=== PATIENT | female | born 1990 | race African-American/Black ===

== ENCOUNTER 2016-08-26 03:32 | Emergency (ER) | payer SELFPAY ==
[~2016-08-26] VITALS: Ht 160 cm; Wt 70.0 kg
[~2016-08-26 03:32] MED LIST: OXYC1SOL5 PO; PRENCAP6 PO
[2016-08-26 03:35] VITALS: BP 96/59; PULSE 85; RESP 18; TEMP 98.6; O2SAT 99
[2016-08-26 04:35] VITALS: BP 107/55; PULSE 68; RESP 16; O2SAT 100
[2016-08-26] MEDS ORDERED: SODIUM CHLOR 0.9% 1000 ML INJ 1,000 ML IV SCH (04:52)
[2016-08-26] MEDS ORDERED: ONDANSETRON HCL 4 MG/2 ML VIAL IVP ONE (05:00)
[2016-08-26] MEDS ORDERED: SODIUM CHLORIDE 0.9% FLUSH 10 ML FLUSH IV FLUSH PRN (05:00)
--- NOTE | 2016-08-26 05:09 | PD ---
HPI Chief Complaint: Abdominal Pain Time Seen by Provider: 04:51 Travel History International Travel<30 days: No Contact w/Intl Traveler<30days: No Traveled to known affect area: No History of Present Illness HPI The patient is a 26 year old female who presents to the [facility] emergency department with a history of sharp abdominal pain in the periumbilical and suprapubic area that began at 3 AM. The patient reports that she awoke with the pain. She reports that the pain has been constant since the onset. She reports that she's had vomiting 1 associated with this. She denies having any diarrhea. Her last bowel movement was earlier today. She denies having any blood in her stool or black or tarry stools. She reports that her last menstrual cycle was 4 weeks ago. She denies using any type of contraceptive. She is unsure whether she could be . The patient denies having any dysuria, hematuria, urinary urgency, or frequency. On review of systems, the patient denies any recent fevers, cough, congestion, neck pain, chest pain, shortness of breath, or neurologic symptoms. [facility] Past Medical History Narrative Medical The patient's past medical history is reportedly none. Medical History: Denies Significant Hx Immunizations Current: Yes Tetanus Vaccination: < 5 Years Influenza Vaccination: Yes ?: Not : 2 Para: 2 Miscarriage: 0 : 0 Past Surgical History Narrative Surgical The patient's past surgical history is reportedly none. Surgical History: No Previous Surgery Social History Alcohol Use: No Tobacco Use: No Substance Use: No Allergies-Medications (Allergen,Severity, Reaction): Coded Allergies: No Known Allergies (Verified , 05/28/15) Reported Meds & Prescriptions Reported Meds & Active Scripts Active Zofran Odt (Ondansetron Odt) 4 Mg Tab 4 Mg SL Q6HR PRN Naproxen EC (Naproxen) 500 Mg Tabdr 500 Mg PO BID PRN Review of Systems Except as stated in HPI: all other systems reviewed are Neg General / Constitutional: No: Fever Eyes: No: Visual changes HENT: No: Headaches Cardiovascular: No: Chest Pain or Discomfort Respiratory: No: Shortness of Breath Gastrointestinal: Positive: Nausea, Vomiting, Abdominal Pain, No: Diarrhea, Hematemesis, Hematochezia, Constipation, Changes in Bowel Habits, Indigestion, Loss of Appetite Genitourinary: No: Urgency, Frequency, Dysuria Musculoskeletal: No: Pain Skin: No Rash Neurologic: No: Weakness Psychiatric: No: Depression Endocrine: No: Polydipsia Hematologic/Lymphatic: No: Easy Bruising Physical Exam Narrative General: The patient is a well-developed well-nourished female in no acute distress. Head and Neck exam: Head is normocephalic atraumatic. Eyes: EOMI, pupils are equal round and reactive to light. Nose: Midline septum with pink mucous membranes Mouth: Dentition unremarkable. Moist mucus membranes. Posterior oropharynx is not erythematous. No tonsillar hypertrophy. Uvula midline. Airway patent. Neck: No palpable lymphadenopathy. No nuchal rigidity. No thyromegaly. Cardiovascular: Regular rate and rhythm without murmurs, gallops, or rubs. Lungs: Clear to auscultation bilaterally. No wheezes, rhonchi, or rales. Abdomen: Soft, with reported discomfort on palpation of the periumbilical area, no other tenderness on palpation of the other quadrants of the abdomen. No guarding, rebound, or rigidity. Normal bowel sounds are audible. No tenderness on palpation of McBurney's point. Negative [place] sign. Extremities: No clubbing, cyanosis, or edema. No calf tenderness on palpation. Back: No spinous process tenderness to palpation. No costovertebral angle tenderness to palpation. Neurologic Exam: Grossly nonfocal. Skin Exam: No rash noted. Intact skin that is warm and dry. Data Data Last Documented VS Vital Signs Date Time Temp Pulse Resp B/P Pulse Ox O2 Delivery O2 Flow Rate FiO2 08/26/16 04:35 68 16 107/55 100 Room Air 08/26/16 03:35 98.6 Orders Complete Blood Count With Diff (08/26/16 04:52) Comprehensive Metabolic Panel (08/26/16 04:52) Lipase (08/26/16 04:52) Urinalysis - C+S If Indicated (08/26/16 04:52) Iv Access Insert/Monitor (08/26/16 04:52) Ecg Monitoring (08/26/16 04:52) Oximetry (08/26/16 04:52) Ondansetron Inj (Zofran Inj) (08/26/16 05:00) Sodium Chlor 0.9% 1000 Ml Inj (Ns 1000 M (08/26/16 04:52) Sodium Chloride 0.9% Flush (Ns Flush) (08/26/16 05:00) Ed Urine Pregnancytest Poc (08/26/16 04:52) Ketorolac Inj (Toradol Inj) (08/26/16 05:15) Labs Laboratory Tests Test 08/26/16 08/26/16 05:15 05:40 White Blood Count 9.8 TH/MM3 Red Blood Count 4.66 MIL/MM3 Hemoglobin 12.7 GM/DL Hematocrit 38.1 % Mean Corpuscular Volume 81.7 FL Mean Corpuscular Hemoglobin 27.3 PG Mean Corpuscular Hemoglobin 33.4 % Concent Red Cell Distribution Width 15.2 % Platelet Count 168 TH/MM3 Mean Platelet Volume 10.3 FL Neutrophils (%) (Auto) 68.4 % Lymphocytes (%) (Auto) 21.1 % Monocytes (%) (Auto) 6.7 % Eosinophils (%) (Auto) 2.8 % Basophils (%) (Auto) 1.0 % Neutrophils # (Auto) 6.7 TH/MM3 Lymphocytes # (Auto) 2.1 TH/MM3 Monocytes # (Auto) 0.7 TH/MM3 Eosinophils # (Auto) 0.3 TH/MM3 Basophils # (Auto) 0.1 TH/MM3 CBC Comment DIFF FINAL Differential Comment Sodium Level 141 MEQ/L Potassium Level 3.8 MEQ/L Chloride Level 107 MEQ/L Carbon Dioxide Level 27.3 MEQ/L Anion Gap 7 MEQ/L Blood Urea Nitrogen 11 MG/DL Creatinine 0.82 MG/DL Estimat Glomerular Filtration 103 ML/MIN Rate Random Glucose 90 MG/DL Calcium Level 8.7 MG/DL Total Bilirubin 0.2 MG/DL Aspartate Amino Transf 13 U/L (AST/SGOT) Alanine Aminotransferase 18 U/L (ALT/SGPT) Alkaline Phosphatase 71 U/L Total Protein 7.1 GM/DL Albumin 3.6 GM/DL Lipase 125 U/L Urine Color YELLOW Urine Turbidity CLEAR Urine pH 5.0 Urine Specific [place] 1.015 Urine Protein NEG mg/dL Urine Glucose (UA) NEG mg/dL Urine Ketones NEG mg/dL Urine Occult Blood LARGE Urine Nitrite NEG Urine Bilirubin NEG Urine Urobilinogen LESS THAN 2.0 MG/DL Urine Leukocyte Esterase SMALL Urine RBC 9 /hpf Urine WBC 3 /hpf Urine Squamous Epithelial 1 /hpf Cells Urine Mucus FEW /lpf Microscopic Urinalysis Comment CULT NOT INDICATED MDM Medical Decision Making Medical Screen Exam Complete: Yes Emergency Medical Condition: Yes Medical Record Reviewed: Yes Differential Diagnosis Trapped gas, versus dysmenorrhea, versus ectopic , versus threatened miscarriage, versus constipation, versus urinary tract infection Narrative Course During the course of the patients emergency department visit, the patients history, examination, and differential diagnosis were reviewed with the patient. The patient had IV access obtained and blood work sent for analysis. The patient was placed on a cloth presser with oximetry and blood pressure monitoring. A bedside test was done and was negative. The patient was initially provided normal saline 1 L IV fluid bolus. The patient was given Toradol for pain, Zofran for nausea. The patients laboratory studies were reviewed and remarkable for a CBC that is within normal limits, CMP is unremarkable, lipase 125, urinalysis shows large blood, 9 RBCs, however the patient while being observed in the emergency department began her menstrual cycle. I suspect of the patient's symptoms are related to dysmenorrhea. The patient will be discharged home with a prescription for an anti-inflammatory pain medication and Zofran. The patient is resting comfortably and feels better, is alert and in no distress. The patients results and examination findings were discussed with the patient. The repeat examination is unremarkable and benign. The history, exam, diagnostic testing, and current condition do not suggest any significant pathology to warrant further testing, continued ED treatment, admission, or surgical evaluation at this point. The vital signs have been stable. The patient does not have uncontrollable pain, intractable vomiting, or other significant symptoms. The patient's condition is stable and appropriate for discharge. The patient will pursue further outpatient evaluation with a primary care physician or other designated or consulting physician as indicated in the discharge instructions. The patient expressed understanding and was agreeable with this plan. Diagnosis Primary Impression: Dysmenorrhea Additional Impression: Vomiting Qualified Code: R11.2 - Non-intractable vomiting with nausea, unspecified vomiting type Referrals: Quality Improvement Manager 1 week Patient Instructions: Acute Nausea and Vomiting (ED), Dysmenorrhea (ED), General Instructions Med/Other Pt SpecificInfo: Prescription(s) given Scripts Ondansetron Odt (Zofran Odt)4 Mg Tab4 Mg SL Q6HR PRN (Nausea/Vomiting) #7 TAB Ref 0 Prov:Belinda Cruz MD 08/26/[address] (Naproxen EC)500 Mg [id number] Mg PO BID PRN (PAIN GREATER THAN 5) # 10 TAB Ref 0 Prov:Belinda Cruz MD 08/26/16 Disposition: 01 DISCHARGE HOME Condition: Belinda Elmore MD Aug 26, 2016 05:09 Condition: Belinda Elmore MD Aug 26, 2016 05:09
[2016-08-26] MEDS ORDERED: KETOROLAC TROMETHAMINE 30 MG/ML (IVP) VIAL IV PUSH ONE (05:15)
[2016-08-26 05:36] LABS: AUTOMATED NEUTROPHIL # 6.7 TH/MM3 (1.8-7.7); BASOPHIL # 0.1 TH/MM3 (0-0.2); EOSINOPHIL # 0.3 TH/MM3 (0-0.4); EOSINOPHIL % 2.8 % (0.0-4.0); HEMATOCRIT 38.1 % (35.0-46.0); HEMO FLAGS DIFF FINAL; LYMPH % 21.1 % (9.0-44.0); LYMPHOCYTE # 2.1 TH/MM3 (1.0-4.8); MEAN CELL VOLUME 81.7 FL (80.0-100.0); MEAN CORPUSCULAR HEMOGLOBIN 27.3 PG (27.0-34.0); MEAN CORPUSCULAR HGB CONC 33.4 % (32.0-36.0); MONO % 6.7 % (0.0-8.0); NEUT % 68.4 % (16.0-70.0); PLATELET COUNT 168 TH/MM3 (150-450); RED BLOOD COUNT 4.66 MIL/MM3 (4.00-5.30); RED CELL DISTRIBUTION WIDTH 15.2 % (11.6-17.2); WHITE BLOOD COUNT 9.8 TH/MM3 (4.0-11.0)
[2016-08-26 06:01] LABS: ALKALINE PHOSPHATASE 71 U/L (45-117); TOTAL BILIRUBIN ADULT 0.2 MG/DL (0.2-1.0)
[2016-08-26 06:02] LABS: ALT (GPT) 18 U/L (10-53); ANION GAP 7 MEQ/L (5-15); AST (GOT) 13 U/L (15-37); BICARBONATE 27.3 MEQ/L (21.0-32.0); BLOOD UREA NITROGEN 11 MG/DL (7-18); CHLORIDE 107 MEQ/L (98-107); GLOMERULAR FILTRATION RATE 103 ML/MIN (>89); POTASSIUM 3.8 MEQ/L (3.5-5.1); SODIUM (NA) 141 MEQ/L (136-145)
[2016-08-26 06:04] LABS: BLOOD, URINE LARGE (NEG); COMMENT (UR) CULT NOT INDICATED; CULTURE IF INDICATED CULT NOT INDICATED; GLUCOSE,URINE NEG (NEG); KETONE, URINE NEG (NEG); MUCUS URINE FEW /lpf (OCC); NITRITE,URINE NEG (NEG); SQUAMOUS EPITHELIAL CELL URINE 1 /hpf (0-5); URINE COLOR YELLOW (YELLW/STRAW)
[2016-08-26] MEDS ORDERED: ZOFR4TAB3 SL (06:55)
[2016-08-26] MEDS ORDERED: NAPR1TAB34 PO (06:55)
--- NOTE | 2016-08-27 16:26 | RADRPT ---
EXAM DATE/TIME: 08/26/2016 07:08 [place] COMPARISON: No previous studies available for comparison. INDICATIONS : Abdominal pain and vomiting. MEDICAL HISTORY : None. SURGICAL HISTORY : None. ENCOUNTER: Initial ACUITY: 1 day PAIN SCORE: 8/10 LOCATION: Right lower quadrant FINDINGS: Supine and upright views of the abdomen were performed. The abdominal bowel gas pattern is normal. There is stool throughout the colon. No air fluid levels are seen. No abnormal masses, calcification s, or organomegaly is seen. The visualized lower lungs are clear. No evidence of free intraperitone al gas. The osseous structures are unremarkable. CONCLUSION: Normal examination for a patient of this age. Sudhir Fowler MD on August 26, 2016 at 7:38 Board Certified Radiologist. This report was verified electronically.
== END 2016-08-26 07:34 | disposition home or self-care (01) ==
LOC: NEPC 03:32
DX: N94.6 Dysmenorrhea, unspecified (principal); R11.2 Nausea with vomiting, unspecified
CPT/HCPCS: 74020; 80053; 81001; 83690; 85025; 96361; 96374; 96375; 99284; J1885; J2405; J7030

== ENCOUNTER 2017-06-05 08:20 | Emergency (ER) | payer MEDICAID, OTHER ==
[~2017-06-05] VITALS: Ht 152.4 cm; Wt 56.5 kg
[~2017-06-05 08:20] MED LIST changes: +NAPR1TAB34 PO; -OXYC1SOL5 PO; -PRENCAP6 PO; +ZOFR4TAB3 SL
[2017-06-05 08:26] VITALS: PULSE 92; RESP 14; TEMP 97.8; O2SAT 99
[2017-06-05] MEDS ORDERED: SODIUM CHLOR 0.9% 1000 ML INJ 1,000 ML IV ONE (10:07)
--- NOTE | 2017-06-05 10:12 | PD ---
HPI Chief Complaint: Sanitation Supervisor Problem/Complaint Time Seen by Provider: 09:56 Travel History International Travel<30 days: No Contact w/Intl Traveler<30days: No Traveled to known affect area: No History of Present Illness HPI The patient is a 27-year-old [place] female who presents to the emergency department for bleeding in . The patient is Ab1 whose last menstrual cycle was on March 04, 2017. The patient states she went to the bathroom earlier today and had a small amount of bright red blood on the toilet paper, is unsure if this was vaginal or rectal. She does complain of mild lower abdominal pelvic cramping. She is not scheduled to see an long filler cigar roller machine to the beginning of June. She denies any fever, chills, sweats , dysuria, frequency, or urgency. She does complain of mild nausea without any vomiting. Symptoms are mild to moderate, possibly exacerbated by , and there are no current alleviating factors. PFSH Past Medical History Medical History: Denies Significant Hx Immunizations Current: Yes Tetanus Vaccination: < 5 Years ?: LMP: 15 weeks : 3 Para: 2 Miscarriage: 0 : 1 Past Surgical History Surgical History: No Previous Surgery Social History Alcohol Use: No Tobacco Use: No Substance Use: No Allergies-Medications (Allergen,Severity, Reaction): Coded Allergies: No Known Allergies (Verified Adverse Reaction, Unknown, 06/05/17) Reported Meds & Prescriptions Reported Meds & Active Scripts Active Flagyl (Metronidazole) 500 Mg Tab 500 Mg PO BID 7 Days Review of Systems Except as stated in HPI: all other systems reviewed are Neg General / Constitutional: No: Fever Cardiovascular: No: Chest Pain or Discomfort Respiratory: No: Shortness of Breath Gastrointestinal: Positive: Nausea, No: Vomiting, Abdominal Pain Genitourinary: Positive: Pelvic Pain, Vaginal Bleeding, No: Urgency, Frequency , Dysuria, Discharge Physical Exam Narrative GENERAL: Awake, alert, pleasant 27 year-old female who appears her stated age and is in no acute respiratory distress. SKIN: Focused skin assessment warm/dry. HEAD: Atraumatic. Normocephalic. EYES: No injection or drainage. ENT: No nasal bleeding or discharge. Mucous membranes pink and moist. NECK: Trachea midline. No JVD. CARDIOVASCULAR: Regular rate and rhythm. No murmur appreciated. RESPIRATORY: No accessory muscle use. Clear to auscultation. Breath sounds equal bilaterally. GASTROINTESTINAL: Abdomen soft, gravid inferior to the umbilicus. No guarding or rigidity. Pelvic: Exam was performed in the presence of a female nurse. External examination reveals no rashes or lesions. Speculum examination reveals that the cervix is closed, mild erythema over the superior and inferior aspect of the cervical os. Yellow foamy discharge in the vaginal vault. Wet prep and gonorrhea/chlamydia were sent to lab. MUSCULOSKELETAL: No obvious deformities. No clubbing. No cyanosis. No edema. NEUROLOGICAL: Awake and alert. No obvious cranial nerve deficits. Motor grossly within normal limits. Normal speech. PSYCHIATRIC: Appropriate mood and affect; insight and judgment normal. Data Data Last Documented VS Vital Signs Date Time Temp Pulse Resp B/P (MAP) Pulse Ox O2 Delivery O2 Flow Rate FiO2 06/05/17 08:26 97.8 92 14 99 Orders Orders Ed Poc Ultrasound (06/05/17 ) Gc And Chlamydia Pcr (06/05/17 10:07) Wet Prep Profile (06/05/17 10:07) Urinalysis - C+S If Indicated (06/05/17 10:07) Iv Access Insert/Monitor (06/05/17 10:07) Sodium Chlor 0.9% 1000 Ml Inj (Ns 1000 M (06/05/17 10:07) Ondansetron Inj (Zofran Inj) (06/05/17 10:15) Labs Laboratory Tests Test 06/05/17 10:27 06/05/17 10:40 Clue Cells (Wet Prep) NONE SEEN Vaginal Trichomonas (Wet Prep) PRESENT Vaginal Yeast (Wet Prep) NONE SEEN Urine Color YELLOW Urine Turbidity CLEAR Urine pH 7.0 Urine Specific [place] 1.013 Urine Protein NEG mg/dL Urine Glucose (UA) NEG mg/dL Urine Ketones NEG mg/dL Urine Occult Blood NEG Urine Nitrite NEG Urine Bilirubin NEG Urine Urobilinogen LESS THAN 2.0 MG/DL Urine Leukocyte Esterase SMALL Urine RBC 1 /hpf Urine WBC 7 /hpf Urine Squamous Epithelial Cells <1 /hpf Urine Mucus FEW /lpf Urine Trichomonas RARE Microscopic Urinalysis Comment CULT NOT INDICATED MDM Medical Decision Making Medical Screen Exam Complete: Yes Emergency Medical Condition: Yes Medical Record Reviewed: Yes Interpretation(s) Laboratory Tests Test 06/05/17 10:27 06/05/17 10:40 Clue Cells (Wet Prep) NONE SEEN Vaginal Trichomonas (Wet Prep) PRESENT Vaginal Yeast (Wet Prep) NONE SEEN Urine Color YELLOW Urine Turbidity CLEAR Urine pH 7.0 Urine Specific [place] 1.013 Urine Protein NEG mg/dL Urine Glucose (UA) NEG mg/dL Urine Ketones NEG mg/dL Urine Occult Blood NEG Urine Nitrite NEG Urine Bilirubin NEG Urine Urobilinogen LESS THAN 2.0 MG/DL Urine Leukocyte Esterase SMALL Urine RBC 1 /hpf Urine WBC 7 /hpf Urine Squamous Epithelial Cells <1 /hpf Urine Mucus FEW /lpf Urine Trichomonas RARE Microscopic Urinalysis Comment CULT NOT INDICATED Differential Diagnosis Differential diagnosis includes , ectopic , threatened AB, UTI , vaginitis, cervicitis, Trichomonas, bacterial vaginosis. Narrative Course IV was established, and the patient was placed on cardiac telemetry monitoring and continuous pulse oximetry monitoring. I performed an ultrasound at bedside which reveals an IUP with positive heart rate and positive heart tones. A pelvic exam was completed in the presence of a female nurse. UA was sent to lab. Wet prep and gonorrhea/80 were sent to lab. The patient's blood type on December 29, 2015 was O+, therefore, no indication for RhoGAM. UA reveals 7 wbc's. Wet prep is positive for Trichomonas. The patient was treated with Flagyl 5 mg twice a day for one week. She is advised to follow-up with her long filler cigar roller machine. Return if symptoms worsen or progress. Procedures Procedure Narrative A bedside ultrasound was performed with a curvilinear probe which reveals an IUP with positive heart rate and positive movement. The patient was shown the ultrasound as it was performed real-time. The patient tolerated the procedure without difficulty and there was no complications. Diagnosis Primary Impression: Trichomonas infection Additional Impression: Qualified Codes: Z34.90 - Encounter for supervision of normal , unspecified, unspecified trimester Patient Instructions: General Instructions Additional Instructions: Medication as directed. Follow-up with her long filler cigar roller machine. Take a vitamin daily. Return if symptoms worsen or progress. Med/Other Pt SpecificInfo: Prescription(s) given Scripts Metronidazole (Flagyl) 500 Mg Tab 500 MG PO BID for Infection for 7 Days, #14 TAB 0 Refills Prov: Terry Jerry MD 06/05/17 Disposition: DISCHARGE HOME Condition: Stable Terry Jerry MD Jun 05, 2017 10:12
[2017-06-05] MEDS ORDERED: ONDANSETRON HCL 4 MG/2 ML VIAL IVP ONE (10:15)
[2017-06-05] MEDS ORDERED: METR-1 PO (11:13)
[2017-06-05 11:17] LABS: BILIRUBIN, URINE NEG (NEG); BLOOD, URINE NEG (NEG); GLUCOSE,URINE NEG (NEG); KETONE, URINE NEG (NEG); MUCUS URINE FEW /lpf (OCC); NITRITE,URINE NEG (NEG); SQUAMOUS EPITHELIAL CELL URINE <1 /hpf (0-5); TRICHOMONAS, URINE RARE; URINE COLOR YELLOW (YELLW/STRAW); URINE LEUKOCYTE ESTERASE SMALL (NEG)
== END 2017-06-05 12:13 | disposition home or self-care (01) ==
LOC: NEPD 08:20
DX: O98.811 Other maternal infectious and parasitic diseases complicating pregnancy, first trimester (principal); A59.9 Trichomoniasis, unspecified
CPT/HCPCS: 81001; 87210; 87491; 87591; 96361; 96374; 99284; J2405; J7030

== ENCOUNTER 2017-12-02 13:17 | Inpatient (IN) ==
[2017-12-02] MEDS ORDERED: Sodium Chlor 0.9% Inj 500 ML IV.SIG PRN (14:01)
[2017-12-02] MEDS ORDERED: Penicillin G Potassium Inj 5,000,000 UNIT in Sodium Chloride 0.9% Inj 100 ML IV.SIG ONE (14:01)
[2017-12-02] MEDS ORDERED: Naloxone Inj 0.4 MG/ML Vial IV.PUSH PRN ×2 (14:01→19:15)
[2017-12-02] MEDS ORDERED: fentaNYL Citrate Inj 100 MCG/2 ML Ampul IV.PUSH PRN ×2 (14:01)
[2017-12-02] MEDS ORDERED: Oxytocin 30 Units/500ml Premix 30 UNITS/500 ML BAG IV.SIG ONE (14:01)
[2017-12-02] MEDS ORDERED: Sod Chloride 0.9% Inj 1,000 ML IV.CONT PRN (14:01)
--- NOTE | 2017-12-02 14:07 | ED ---
History of Present Illness Service: 27-year-old at 39 weeks gestation presenting to the OB ED with complaints of contractions. Patient states that she began having contractions this morning they have been increasing in frequency. She also endorses some spotting but no significant bleeding. No gush of fluid or decreased movement. She was seen by Samantha Lawson earlier today and culture was 4 cm dilated. She otherwise denies any fever, chills, dysuria, headache, chest pain or shortness of breath. Primary Care Physician: UNKNOWN Review of Systems All other systems reviewed negative except as stated in HPI PMFSH - History History Provided By: Patient - Medical / Surgical Hx Neg / Unobtainable Surgical History: No Previous Surgery - Medical History Medical History: Medical History (Last Updated 12/02/17 @ 14:15 by Darren Quezada MD, R2) HSV (herpes simplex virus) infection - Tobacco History Tobacco Use In Past 30 Days: No - Alcohol History How Often Do You Have a Drink Containing Alcohol: Never - Substance Use History Substance History: Active Abuse - Substance Use Type Marijuana Status: Active Route Used: Inhalation - Immunization History Tetanus Immunization: Unable to Assess Hx Influenza Vaccine This Season: No Medications and Allergies Active Medications: Active Medications Citric Acid/Sodium Citrate (Sodium Citrate/Citric Acid Liq) 30 ml PO HOTEL DINING ROOM CASHIER AISHWARYA Stop: 12/06/17 14:14 Fentanyl Citrate (Fentanyl Inj) 50 mcg IV.PUSH Q1H PRN PRN Reason: Pain Scale 3 - 5 Fentanyl Citrate (Fentanyl Inj) 100 mcg IV.PUSH Q1H PRN PRN Reason: PAIN SCALE 6 TO 10 Lidocaine HCl (Xylocaine 1% Inj) 0.1 ml I-DERMAL PRN PRN PRN Reason: For IV start Stop: 12/05/17 14:00 Lidocaine HCl (Xylocaine 1% Inj) 10 ml INFILTRATN PRN PRN PRN Reason: For episiotomy repair Stop: 12/04/17 14:00 Allergies Allergy/AdvReac Type Severity Reaction Status Date / Time No Known Allergies Unknown Uncoded 06/05/17 08:35 Exam Vital signs: Vital Signs 12/02/17 13:31 12/02/17 13:32 Temperature 98.6 F Pulse Rate 81 Respiratory Rate 20 Blood Pressure 126/72 Narrative: GENERAL: Well-nourished, well-developed patient. SKIN: Warm and dry. HEAD: Normocephalic and atraumatic. EYES: No scleral icterus. No injection or drainage. ENT: No nasal drainage noted. Mucous membranes pink. Airway patent. NECK: Supple, trachea midline. No JVD. CARDIOVASCULAR: Regular rate and rhythm without murmurs, gallops, or rubs. RESPIRATORY: Breath sounds equal bilaterally. No accessory muscle use. ABDOMEN/GI: Abdomen soft, non-tender, bowel sounds present, no rebound, no guarding Gravid to 39 weeks size GENITOURINARY: External Genitalia: intact and normal in appearance Cervix: Midposition Dilatation: 5-6 Effacement: 70 Station: -2 Presentation: vertex Membranes: [intact] Uterine Contractions: Every 2-5 minutes FHT's: Category: 1 Baseline: 130 Reactive: y Variability: Moderate Decels: Absent EXTREMITIES: No cyanosis or edema. BACK: Nontender without obvious deformity. No CVA tenderness. NEUROLOGICAL: Awake and alert. Moves all extremities without difficulty. Normal speech. Assessment and Plan - Plan 27-year-old at 39 weeks gestation present OB ED with contractions. Noted to be 5-6/70/-2. GBS positive -GBS positive, no allergies will treat with penicillin per protocol -Patient requesting epidural -History of HSV, states last outbreak was several years ago. No prophylactic antiviral during this -Category 1 tracing, having contractions every 2-5 minutes -Otherwise routine labor and delivery orders Discharge Plan - Discharge Disposition Patient Disposition: 30 Still Patient - Physicians Team ED Provider: Jace Aguilera Primary Care Provider: UNKNOWN,
[2017-12-02] MEDS ORDERED: Citric Acid/Sodium Citrate Liq 30 ML UDC PO SCH (14:15)
[2017-12-02 14:59] LABS: Baso # (Auto) 0.1 th/mm3 (0.0-0.2); Baso % (Auto) 0.7 % (0.0-2.0); Eos # (Auto) 0.2 th/mm3 (0.0-0.4); Eos % (Auto) 1.6 % (0.0-4.0); Hematocrit 33.3 % (35.0-46.0); Hemoglobin 10.9 gm/dL (11.6-15.3); Lymph % (Auto) 15.7 % (9.0-44.0); Mean Corpuscular HGB Conc 32.8 % (32.0-36.0); Mean Corpuscular Hemoglobin 23.9 pg (27.0-34.0); Mean Corpuscular Volume 72.8 fL (80.0-100.0); Mean Platelet Volume 10.5 fL (7.0-11.0); Mono % (Auto) 7.7 % (0.0-8.0); Neut # (Auto) 9.4 th/mm3 (1.8-7.7); Neut % (Auto) 74.3 % (16.0-70.0); Platelet Count 140 th/mm3 (150-450); Red Blood Count 4.57 mil/mm3 (4.00-5.30); Red Cell Distribution Width 17.6 % (11.6-17.2); White Blood Count 12.6 th/mm3 (4.0-11.0)
[2017-12-02 15:28] LABS: Amphetamine Urine With Conf Neg (Neg); Benzodiazepine Urine With Conf Neg (Neg)
[2017-12-02] MEDS ORDERED: fentaNYL 2MCG-Bupiv 0.125% Epi 150 ML EPIDURAL ONE (15:45)
[2017-12-02] MEDS ORDERED: Diphtheria/Tetanus/Pertussis Vaccine Inj 0.5 ML Syringe IM ONE (16:00)
[2017-12-02] MEDS ORDERED: Measles/Mumps/Rubella Vaccine Inj 0.5 ML Vial SQ ONE (16:00)
[2017-12-02] MEDS ORDERED: fentaNYL 2MCG-Bupiv 0.125% Epi 150 ML EPIDURAL PRN (16:32)
[2017-12-02] MEDS ORDERED: fentaNYL Citrate Inj 100 MCG/2 ML Ampul EPIDURAL ONE (16:32)
[2017-12-02] MEDS ORDERED: Penicillin G Potassium Inj 2,500,000 UNIT in Sodium Chlor 0.9% Inj 100 ML IV.SIG SCH (18:01)
[2017-12-02] MEDS ORDERED: Lidocaine PF 1% Inj 30 ML Vial ONE (19:02)
[2017-12-02] MEDS ORDERED: Ibuprofen 400 MG Tablet PO PRN (19:15)
[2017-12-02] MEDS ORDERED: Witch Hazel 50%/Glyderin 12.5% 40 Pad Jar RECTAL PRN (19:15)
[2017-12-02] MEDS ORDERED: Zolpidem Tartrate 5 MG Tablet PO PRN (19:15)
[2017-12-02] MEDS ORDERED: Bisacodyl 10 MG Supp RECTAL PRN (19:15)
[2017-12-02] MEDS ORDERED: Acetaminophen 325 MG Tablet PO PRN (19:15)
[2017-12-02] MEDS ORDERED: Benzocaine 20% Top Spray 60 ML Can TOPICAL PRN (19:15)
[2017-12-02] MEDS ORDERED: Oxytocin 30 Units/500ml Premix 30 UNITS/500 ML BAG IV.CONT SCH (19:15)
--- NOTE | 2017-12-02 19:18 | P.OBDELI ---
Weeks Gestation: 39 Anesthesia: Epidural Episiotomy: none Vaginal Delivery: Normal Presentation: Occiput anterior Nuchal Cord: None Delayed Cord Clamping (45 sec): Yes Placenta: Spontaneous delivery, Intact Laceration: None Estimated blood loss (mL): 200 : Female Infant Female A Delivery Date: 12/02/17 Delivery Time: 19:05 Weight: 2920 kg score (1 min): 9 score (5 min): 9 Additional Information: Delivered by Neil Cary MD supervised by Dr. Willy MD and Dr. Aron MD. Mother GBS positive, received 1 dose of penicillin.
[2017-12-03] MEDS ORDERED: medroxyPROGESTERone Acetate Inj 150 MG/ML Syringe IM SCH (08:09)
--- NOTE | 2017-12-03 08:09 | P.PNOB ---
Subjective Interval history: Patient is a 27-year-old delivered at 39 weeks. Patient is day 1 after . Patient's pain is well-controlled. Patient reports eating and drinking without any nausea or vomiting. Patient reports minimal bleeding. Patient has passed gas but no bowel movements. Patient is walking without lower extremity pain or shortness of breath. Patient reports desire for contraception. Objective Vital Signs/I&O: Vital Signs 12/02/17 13:31 12/02/17 13:32 12/02/17 15:28 Temperature 98.6 F Pulse Rate 81 Respiratory Rate 20 16 Blood Pressure 126/72 12/02/17 15:29 12/02/17 15:30 12/02/17 16:00 Temperature Pulse Rate 86 82 87 Respiratory Rate Blood Pressure 124/82 119/78 118/75 12/02/17 16:06 12/02/17 16:11 12/02/17 16:26 Temperature Pulse Rate 91 H 83 84 Respiratory Rate Blood Pressure 122/99 H 129/72 117/70 12/02/17 16:30 12/02/17 16:32 12/02/17 16:36 Temperature Pulse Rate 90 Respiratory Rate 16 Blood Pressure 116/71 161/141 H 12/02/17 17:00 12/02/17 17:01 12/02/17 17:31 Temperature Pulse Rate 78 89 Respiratory Rate 18 Blood Pressure 109/68 109/56 L 12/02/17 17:48 12/02/17 18:01 12/02/17 18:31 Temperature Pulse Rate 74 74 Respiratory Rate 18 Blood Pressure 105/80 116/68 12/02/17 18:36 12/02/17 19:11 12/02/17 19:15 Temperature 97.5 F L 97.8 F Pulse Rate 98 H 83 Respiratory Rate 18 12 Blood Pressure 106/91 H 114/58 L 12/02/17 19:19 12/02/17 19:43 12/02/17 19:49 Temperature Pulse Rate 89 71 Respiratory Rate 16 Blood Pressure 123/69 104/70 12/02/17 20:00 12/02/17 20:04 12/02/17 20:15 Temperature Pulse Rate 75 86 Respiratory Rate 14 Blood Pressure 120/75 123/82 12/02/17 20:30 12/02/17 21:06 12/02/17 21:30 Temperature 97.8 F Pulse Rate 89 87 Respiratory Rate 16 18 Blood Pressure 130/96 H 114/81 Intake & Output 12/02/17 12/03/17 12/03/17 18:59 06:59 18:59 Weight 75.189 kg Result Diagrams: 12/02/17 14:32 Objective Remarks: GENERAL: Well-nourished, well-developed patient. CARDIOVASCULAR: Regular rate and rhythm without murmurs, gallops, or rubs. RESPIRATORY: Breath sounds equal bilaterally. No accessory muscle use. ABDOMEN/GI: Abdomen soft, non-tender. Fundus: Firm, non-tender at umbilicus. GENITOURINARY: Light to moderate bleeding. EXTREMITIES: No cyanosis or edema, non-tender, without signs of DVT. Medications and IVs: Active Medications Acetaminophen (Tylenol) 650 mg PO Q4H PRN PRN Reason: PAIN SCALE 1 TO 2 Al Hydroxide/Mg Hydroxide (Milk Of Magnesia Liq) 30 ml PO Q12H PRN PRN Reason: Mild Constipation Benzocaine (Americaine 20% Top [place]) 1 spray TOPICAL Q4H PRN PRN Reason: For Perineum Discomfort Last Admin: 12/02/17 21:15 Dose: 1 spray Bisacodyl (Dulcolax Supp) 10 mg RECTAL DAILY PRN PRN Reason: SEVERE CONSITIPATION Ibuprofen (Motrin) 800 mg PO Q8H PRN PRN Reason: For cramping Last Admin: 12/02/17 22:45 Dose: 800 mg Lactulose (Lactulose Liq) 30 ml PO DAILY PRN PRN Reason: SEVERE CONSITIPATION Naloxone HCl (Narcan Inj) 0.1 mg IV.PUSH Q2M PRN PRN Reason: for opiate reversal Ondansetron HCl (Zofran Odt) 4 mg PO Q6H PRN PRN Reason: NAUSEA OR VOMITING Oxycodone/Acetaminophen (Percocet 5/325 Mg) 1 tab PO Q4H PRN PRN Reason: PAIN SCALE 6 TO 10 Last Admin: 12/02/17 22:47 Dose: 1 tab Sennosides (Senokot) 17.2 mg PO Q12H PRN PRN Reason: Moderate Constipation Sodium Chloride (Ns Flush) 2 ml IV.FLUSH BID AISHWARYA Sodium Chloride (Ns Flush) 2 ml IV.FLUSH PRN PRN PRN Reason: FLUSH AFTER USING IV ACCESS Witch Karrie/Glycerin (Tucks Pads) 1 applicatio RECTAL QID PRN PRN Reason: HEMORRHOIDS Last Admin: 12/02/17 21:15 Dose: 1 applicatio Zolpidem Tartrate (Ambien) 5 mg PO HS PRN PRN Reason: SLEEP Assessment and Plan - Plan Patient is a 27-year-old delivered at 39 weeks. Patient is day 1 after . Patient was counseled to do 6 weeks of pelvic rest. Patient was counseled to follow up in 6 weeks. Patient requested follow-up and contraception. --AF VSS --Continue routine care --Motrin and Tylenol when necessary for pain --Encourage OOB --Pelvic rest for 6 weeks will need follow-up appointment at that time. --Contraception: Depo-Provera --Anticipate discharge tomorrow
--- NOTE | 2017-12-04 08:08 | P.PNOB ---
Subjective Interval history: Patient is a 27-year-old delivered at 39 weeks. Patient is day 2 after . Patient's pain is well-controlled. Patient reports eating and drinking without any nausea or vomiting. Patient reports minimal bleeding. Patient has passed gas and bowel movements. Patient is walking without lower extremity pain or shortness of breath. Patient reports desire for contraception. Objective Vital Signs/I&O: Vital Signs 12/03/17 20:00 Temperature 98.1 F Pulse Rate 70 Respiratory Rate 18 Blood Pressure 132/79 Result Diagrams: 12/02/17 14:32 Objective Remarks: GENERAL: Well-nourished, well-developed patient. CARDIOVASCULAR: Regular rate and rhythm without murmurs, gallops, or rubs. RESPIRATORY: Breath sounds equal bilaterally. No accessory muscle use. ABDOMEN/GI: Abdomen soft, non-tender. Fundus: Firm, non-tender at umbilicus. GENITOURINARY: Light to moderate bleeding. EXTREMITIES: No cyanosis or edema, non-tender, without signs of DVT. Medications and IVs: Active Medications Acetaminophen (Tylenol) 650 mg PO Q4H PRN PRN Reason: PAIN SCALE 1 TO 2 Al Hydroxide/Mg Hydroxide (Milk Of Magnesia Liq) 30 ml PO Q12H PRN PRN Reason: Mild Constipation Benzocaine (Americaine 20% Top [place]) 1 spray TOPICAL Q4H PRN PRN Reason: For Perineum Discomfort Last Admin: 12/02/17 21:15 Dose: 1 spray Bisacodyl (Dulcolax Supp) 10 mg RECTAL DAILY PRN PRN Reason: SEVERE CONSITIPATION Ibuprofen (Motrin) 800 mg PO Q8H PRN PRN Reason: For cramping Last Admin: 12/02/17 22:45 Dose: 800 mg Lactulose (Lactulose Liq) 30 ml PO DAILY PRN PRN Reason: SEVERE CONSITIPATION Medroxyprogesterone Acetate (Depo-Provera Inj) 150 mg IM UNSCH X1 AISHWARYA Stop: 12/04/17 15:00 Naloxone HCl (Narcan Inj) 0.1 mg IV.PUSH Q2M PRN PRN Reason: for opiate reversal Ondansetron HCl (Zofran Odt) 4 mg PO Q6H PRN PRN Reason: NAUSEA OR VOMITING Oxycodone/Acetaminophen (Percocet 5/325 Mg) 1 tab PO Q4H PRN PRN Reason: PAIN SCALE 6 TO 10 Last Admin: 12/04/17 07:43 Dose: 1 tab Sennosides (Senokot) 17.2 mg PO Q12H PRN PRN Reason: Moderate Constipation Sodium Chloride (Ns Flush) 2 ml IV.FLUSH BID AISHWARYA Sodium Chloride (Ns Flush) 2 ml IV.FLUSH PRN PRN PRN Reason: FLUSH AFTER USING IV ACCESS [place]/Glycerin (Tucks Pads) 1 applicatio RECTAL QID PRN PRN Reason: HEMORRHOIDS Last Admin: 12/02/17 21:15 Dose: 1 applicatio Zolpidem Tartrate (Ambien) 5 mg PO HS PRN PRN Reason: SLEEP Assessment and Plan - Plan Patient is a 27-year-old delivered at 39 weeks. Patient is day 2 after . Patient was counseled to do 6 weeks of pelvic rest. Patient was counseled to follow up in 6 weeks. Patient requested follow-up and contraception. --AF VSS --Continue routine care --Motrin and Tylenol when necessary for pain --Encourage OOB --Pelvic rest for 6 weeks will need follow-up appointment at that time. --Contraception: Depo-Provera --Anticipate discharge today - Attending Attestation The exam, history, and the medical decision-making described in the above note were completed with the assistance of the resident physician. I reviewed and agree with the findings presented. I attest that I had a [id number] encounter with the patient on the same day.
== END 2017-12-04 13:28 | disposition home or self-care (01) ==
LOC: HOBED 13:17 → H2E 14:07 → H1EA 21:29
PROVIDERS: ADMIT Obstetrics & Gynecology Maternal & Fetal Medicine; ATTEND Obstetrics & Gynecology Maternal & Fetal Medicine